=== PATIENT | male | born 2000 | race Caucasian/White ===

== ENCOUNTER 2022-08-24 21:24 | Emergency (ER) | payer OTHER ==
[2022-08-24] MEDS ORDERED: METOCLOPRAMIDE 10 MG/2mL INJ ONE (22:02)
[2022-08-24] MEDS ORDERED: MORPHINE 4 MG/ML SYR ONE (22:03)
[2022-08-24] MEDS ORDERED: NA CHLORIDE 0.9% 1,000 ML ONE (22:03)
[2022-08-24] MEDS ORDERED: dexAMETHasone 10 MG/ML VIAL ONE (22:03)
--- NOTE | 2022-08-24 22:13 | RAD REPORT ---
EXAM DESCRIPTION: CT - Head Brain Wo Cont - 08/24/2022 9:58 pm CLINICAL HISTORY: headache, pain behind left eye COMPARISON: No comparisons TECHNIQUE: All CT scans are performed using dose optimization technique as appropriate and may inclu de automated exposure control or mA/KV adjustment according to patient size. FINDINGS: No intracranial hemorrhage, hydrocephalus or extra-axial fluid collection.No areas of brai n edema or evidence of midline shift. The paranasal sinuses and mastoids are clear. The calvarium is intact. IMPRESSION: No acute intracranial abnormality.
--- NOTE | 2022-08-24 23:42 | ER ---
[facility] Name: Ezequiel Tierney Age: 22 yrs Sex: Male : 2000 Arrival Date: 08/24/2022 Time: 21:27 Bed 5 Private MD: Diagnosis: Headache Presentation: 08/24 21:29 Chief complaint: Patient states: "I have a really bad headache and there is a lot of as6 pressure behind my left eye". Coronavirus screen: At this time, the client does not indicate any symptoms associated with coronavirus-19. Ebola Screen: No symptoms or risks identified at this time. Initial Sepsis Screen: Does the patient meet any 2 criteria? No. Patient's initial sepsis screen is negative. Does the patient have a suspected source of infection? No. Patient's initial sepsis screen is negative. Risk Assessment: Do you want to hurt yourself or someone else? Patient reports no desire to harm self or others. Onset of symptoms was August 24, 2022. 21:29 Method Of Arrival: Ambulatory as6 21:29 Acuity: DONNA 3 as6 Triage Assessment: 21:40 Headache History: The patient has had previous headaches. General: Appears as6 uncomfortable, Behavior is calm, cooperative, quiet. Pain: Complains of pain in head. Neuro: Reports headache in left frontal area, that is the "worst ever". Historical: - Allergies: 21:39 No Known Allergies; as6 - Home Meds: 21:39 None [Active]; as6 - PMHx: 21:39 None; as6 - PSHx: 21:39 None; as6 - Immunization history:: Client reports having NOT received the Covid vaccine. Flu vaccine is not up to date. - Social history:: Smoking status: Patient denies any tobacco usage or history of. - Family history:: not pertinent. - Hospitalizations: : No recent hospitalization is reported. Screenin:50 [facility] ED Fall Risk Assessment (Adult) History of falling in the last 3 months, jb4 including since admission No falls in past 3 months (0 pts). Abuse screen: Denies threats or abuse. Nutritional screening: No deficits noted. Tuberculosis screening: No symptoms or risk factors identified. Assessment: 22:20 General: Appears in no apparent distress. uncomfortable, well groomed, well developed, pf1 Behavior is calm, cooperative, appropriate for age, quiet. 22:20 Pain: Pain radiates to left eye Pain currently is 6 out of 10 on a pain scale. Neuro: pf1 Level of Consciousness is awake, alert, obeys commands, Oriented to person, place, time, situation, Reports headache in left eye. Cardiovascular: No deficits noted. Denies. Respiratory: No deficits noted. Airway is patent Respiratory effort is even, unlabored, Respiratory pattern is regular, symmetrical, Breath sounds are clear bilaterally. GI: No deficits noted. No signs and/or symptoms were reported involving the gastrointestinal system. GI: Abdomen is round non-distended, Bowel sounds present X 4 quads. Abd is soft and non tender X 4 quads. : No deficits noted. No signs and/or symptoms were reported regarding the genitourinary system. EENT: No deficits noted. No signs and/or symptoms were reported regarding the EENT system. EENT:. EENT: Reports pain in left eye. Derm: No deficits noted. No signs and/or symptoms reported regarding the dermatologic system. 23:50 Reassessment: Patient appears in no apparent distress at this time. Patient and/or jb4 family updated on plan of care and expected duration. Pain level reassessed. Patient is alert, oriented x 3, equal unlabored respirations, skin warm/dry/pink. Patient states feeling better. Patient states symptoms have improved. Vital Signs: 21:29 BP 133 / 86; Pulse 72; Resp 18 S; Temp 99.0(O); Pulse Ox 100% on R/A; Weight 108.86 kg as6 (R); Height 5 ft. 11 in. (180.34 cm) (R); Pain 8/10; 22:30 BP 140 / 83; Pulse 81; Resp 18; Temp 98.3; Pulse Ox 100% on 2 lpm NC; Pain 6/10; pf1 23:11 BP 115 / 86; Pulse 68; Resp 18; Pulse Ox 100% ; Pain 3/10; pf1 21:29 Body Mass Index 33.47 (108.86 kg, 180.34 cm) as6 Wing Coma Score: 23:40 Eye Response: spontaneous(4). Verbal Response: oriented(5). Motor Response: obeys rn commands(6). Total: 15. ED Course: 21:27 Patient arrived in ED. jj6 21:28 Chente Dawn MD is Attending Physician. rn 21:37 Triage completed. as6 21:40 Arm band placed on. as6 21:59 CT Head Brain wo Cont In Process Unspecified. EDMS 22:35 No provider procedures requiring assistance completed. Inserted saline lock: 20 gauge pf1 in right antecubital area, using aseptic technique. 23:11 Olimpia dyson, KWAN is Primary Nurse. pf1 23:41 Francisco Ariza MD is Referral Physician. rn 23:50 Patient has correct armband on for positive identification. Bed in low position. Call jb4 light in reach. Side rails up X 1. 23:50 IV discontinued, intact, bleeding controlled, No redness/swelling at site. Pressure jb4 dressing applied. Administered Medications: 22:40 Drug: NS 0.9% 1000 ml Route: IV; Rate: 1000 ml; Site: right antecubital; pf1 23:12 Follow up: Response: No adverse reaction; Marked relief of symptoms pf1 23:51 Follow up: Response: No adverse reaction; IV Status: Order to discontinue infusion; jb4 Order to discontinue infusion, Pt discharged; IV Intake: 800ml 22:40 Drug: Decadron - Dexamethasone 10 mg Route: IVP; Site: right antecubital; pf1 23:12 Follow up: Response: No adverse reaction; Marked relief of symptoms pf1 22:40 Drug: Reglan (metoCLOPramide) 10 mg Route: IVP; Site: right antecubital; pf1 23:12 Follow up: Response: No adverse reaction; Marked relief of symptoms; Pain is decreased; pf1 RASS: Alert and Calm (0) 22:40 Drug: morphine 4 mg Route: IVP; Infused Over: 4 mins; Site: right antecubital; pf1 23:12 Follow up: Response: No adverse reaction; Marked relief of symptoms; Pain is decreased; pf1 RASS: Alert and Calm (0) Medication: 23:50 VIS not applicable for this client. jb4 Intake: 23:51 IV: 800ml; Total: 800ml. jb4 Outcome: 23:41 Discharge ordered by . rn 23:50 Discharged to home ambulatory, with family. jb4 23:50 Condition: stable 23:50 Discharge instructions given to patient, Instructed on discharge instructions, follow up and referral plans. medication usage, Demonstrated understanding of instructions, follow-up care, medications, Prescriptions given X 1. 23:51 Patient left the ED. jb4 Signatures: Dispatcher [employer] EDMS Chente Dawn MD MD rn Bryson, James, RN RN jb4 Ingrid Cavanaughj6 Connor Sierra RN RN as6 Olimpia dyson RN RN pf1 Corrections: (The following items were deleted from the chart) :43 No provider procedures requiring assistance completed. pf1 pf1 22:43 Inserted saline lock: 20 gauge in right antecubital area, using aseptic pf1 technique. pf1
--- NOTE | 2022-08-24 23:42 | EDPHYS ---
Physician Documentation [facility] Name: Ezequiel Tierney Age: 22 yrs Sex: Male : 2000 Arrival Date: 08/24/2022 Time: 21:27 Bed 5 Private MD: ED Physician Chente Dawn HPI: 08/24 21:43 This 22 yrs old Male presents to ER via Ambulatory with complaints of Headache, Eye rn Pain, EYE/FACIAL PRESSURE/PAIN. 21:43 The patient complains of pain to the forehead and left eye. The patient describes the rn headache as aching, throbbing. Onset: The symptoms/episode began/occurred today. Associated signs and symptoms: Pertinent negatives: altered mental status, fever, neck stiffness, rash, vision changes, vision loss, vomiting, weakness, vertigo. Severity of symptoms: At its worst the pain was moderate, "similar to past headaches", in the emergency department the pain is unchanged. Headache History: The patient has had previous headaches and this one is similar to previous episodes. The symptoms are alleviated by pressure to face/head/eye the symptoms are aggravated by. The patient has experienced a previous episode. The patient has not recently seen a physician. Pt reports headache that began today, pain behind left eye, no vision changes, pressure applied to left face improves pain. Has had similar headache in past, but this is only 2nd time he has had to come in to ER for it. NO trauma. No focal neuro complaint. No vision changes or loss. Does not feel ill. No fever/cough/runny nose/sore throat/vomiting/diarrhea. . Historical: - Allergies: 21:39 No Known Allergies; as6 - Home Meds: 21:39 None [Active]; as6 - PMHx: 21:39 None; as6 - PSHx: 21:39 None; as6 - Immunization history:: Client reports having NOT received the Covid vaccine. Flu vaccine is not up to date. - Social history:: Smoking status: Patient denies any tobacco usage or history of. - Family history:: not pertinent. - Hospitalizations: : No recent hospitalization is reported. ROS: 21:43 Constitutional: Negative for fever, chills, and weight loss, Eyes: Negative for injury, rn pain, redness, and discharge, ENT: Negative for injury, pain, and discharge, Neck: Negative for injury, pain, and swelling, Cardiovascular: Negative for chest pain, palpitations, and edema, Respiratory: Negative for shortness of breath, cough, wheezing, and pleuritic chest pain, Abdomen/GI: Negative for abdominal pain, nausea, vomiting, diarrhea, and constipation, Back: Negative for injury and pain, MS/Extremity: Negative for injury and deformity, Skin: Negative for injury, rash, and discoloration, Neuro: Negative for weakness, numbness, tingling, and seizure. Exam: 21:43 Constitutional: This is a well developed, well nourished patient who is awake, alert, rn and in no acute distress. Head/Face: Normocephalic, atraumatic. Eyes: Pupils equal round and reactive to light, extra-ocular motions intact. Lids and lashes normal. Conjunctiva and sclera are non-icteric and not injected. Cornea within normal limits. Periorbital areas with no swelling, redness, or edema. ENT: NO stridor, MMM Neck: Trachea midline, no masses palpated, and no cervical lymphadenopathy. Supple, full range of motion without nuchal rigidity, or vertebral point tenderness. No Meningismus. Cardiovascular: Regular rate and rhythm. No pulse deficits. Respiratory: No increased work of breathing, no retractions or nasal flaring. Skin: Warm, dry MS/ Extremity: Pulses equal, no cyanosis. Neuro: Awake and alert, GCS 15, normal gait, 5/5 strength and sensation throughout Vital Signs: 21:29 BP 133 / 86; Pulse 72; Resp 18 S; Temp 99.0(O); Pulse Ox 100% on R/A; Weight 108.86 kg as6 (R); Height 5 ft. 11 in. (180.34 cm) (R); Pain 8/10; 22:30 BP 140 / 83; Pulse 81; Resp 18; Temp 98.3; Pulse Ox 100% on 2 lpm NC; Pain 6/10; pf1 23:11 BP 115 / 86; Pulse 68; Resp 18; Pulse Ox 100% ; Pain 3/10; pf1 21:29 Body Mass Index 33.47 (108.86 kg, 180.34 cm) as6 Mitzy Coma Score: 23:40 Eye Response: spontaneous(4). Verbal Response: oriented(5). Motor Response: obeys rn commands(6). Total: 15. MDM: 21:28 Patient medically screened. rn 23:40 Differential diagnosis: cluster headache, intracerebral hemorrhage, migraine, neoplasm, rn sinusitis, tension headache, vasomotor headache. Data reviewed: vital signs, nurses notes, radiologic studies, CT scan, and as a result, I will discharge patient. Counseling: I had a detailed discussion with the patient and/or guardian regarding: the historical points, exam findings, and any diagnostic results supporting the discharge/admit diagnosis, radiology results, the need for outpatient follow up, to return to the emergency department if symptoms worsen or persist or if there are any questions or concerns that arise at home. Response to treatment: the patient's symptoms have markedly improved after treatment, and as a result, I will discharge patient. Special discussion: I discussed with the patient/guardian in detail that at this point there is no indication for admission to the hospital. It is understood, however, that if the symptoms persist or worsen the patient needs to return immediately for re-evaluation. Based on the history and exam findings, there is no indication for further emergent testing or inpatient evaluation. I discussed with the patient/guardian the need to see the neurologist for further evaluation of the symptoms. ED course: Markedly improved, ct neg, normal vitals and neuro exam. Will dc home and recommended neuro f/u. . 08/24 21:42 Order name: CT Head Brain wo Cont; Complete Time: 22:19 rn 08/24 21:42 Order name: IV Start; Complete Time: 22:48 rn 08/24 21:42 Order name: Oxygen: by nasal cannula; Complete Time: 22:42 rn Administered Medications: 22:40 Drug: NS 0.9% 1000 ml Route: IV; Rate: 1000 ml; Site: right antecubital; pf1 23:12 Follow up: Response: No adverse reaction; Marked relief of symptoms pf1 23:51 Follow up: Response: No adverse reaction; IV Status: Order to discontinue infusion; jb4 Order to discontinue infusion, Pt discharged; IV Intake: 800ml 22:40 Drug: Decadron - Dexamethasone 10 mg Route: IVP; Site: right antecubital; pf1 23:12 Follow up: Response: No adverse reaction; Marked relief of symptoms pf1 22:40 Drug: Reglan (metoCLOPramide) 10 mg Route: IVP; Site: right antecubital; pf1 23:12 Follow up: Response: No adverse reaction; Marked relief of symptoms; Pain is decreased; pf1 RASS: Alert and Calm (0) 22:40 Drug: morphine 4 mg Route: IVP; Infused Over: 4 mins; Site: right antecubital; pf1 23:12 Follow up: Response: No adverse reaction; Marked relief of symptoms; Pain is decreased; pf1 RASS: Alert and Calm (0) Disposition Summary: 08/24/22 23:41 Discharge Ordered Location: Home rn Problem: new rn Symptoms: have improved rn Condition: Stable rn Diagnosis - Headache rn Followup: rn - With: Francisco Ariza MD - When: As needed - Reason: Recheck today's complaints, Re-evaluation by your physician Discharge Instructions: - Discharge Summary Sheet rn - General Headache Without Cause rn - Migraine Headache rn Forms: - Medication Reconciliation Form rn - Thank You Letter rn - Antibiotic burn center nurse - Prescription Opioid Use rn Prescriptions: - Tramadol 50 mg Oral Tablet - take 1 tablet by ORAL route every 8 hours as needed; 12 tablet; Refills: 0, rn Product Selection Permitted Signatures: Dispatcher [employer] EDChente Christian MD MD rn Slawson, Ashby, RN RN as6 Olimpia dyson RN RN pf1 Gonzales Dolwing RN jb4 Corrections: (The following items were deleted from the chart) 21:46 21:43 Constitutional: Negative for fever, chills, and weight loss, Eyes: Negative for rn injury, pain, redness, and discharge, Cardiovascular: Negative for chest pain, palpitations, and edema, Respiratory: Negative for shortness of breath, cough, wheezing, and pleuritic chest pain, Abdomen/GI: Negative for abdominal pain, nausea, vomiting, diarrhea, and constipation, Back: Negative for injury and pain, MS/Extremity: Negative for injury and deformity, Skin: Negative for injury, rash, and discoloration, Neuro: Negative for weakness, numbness, tingling, and seizure, rn
[2022-08-25 00:23] VITALS: O2SAT 100
[2022-08-25 00:24] VITALS: TEMP 98.3
[2022-08-25 00:26] VITALS: BP 115/86
== END 2022-08-24 23:51 | disposition home or self-care (01) ==
LOC: ER 21:24
DX: R51.9 Headache, unspecified (principal)
CPT/HCPCS: 70450; J2765; J1100; J7030; 96361; 96374; 96375; 99284